=== PATIENT | male | born 1975 | race Caucasian/White ===

== ENCOUNTER 2018-06-16 03:47 | Emergency (ER) | payer OTHER ==
[~2018-06-16] VITALS: Ht 180.3 cm; Wt 113.6 kg
[2018-06-16] MEDS ORDERED: ALBUTEROL SULFATE 2.5 MG/0.5 ML NEB SOLUTION NEB ONE (04:15)
[2018-06-16] MEDS ORDERED: IPRATROPIUM BROMIDE 0.5 MG/2.5 ML NEB SOLUTION NEB ONE (04:15)
[2018-06-16] MEDS ORDERED: AZITHROMYCIN 250 MG TABLET PO ONE (04:45)
[2018-06-16 05:14] VITALS: BP 151/90
== END 2018-06-16 05:31 | disposition home or self-care (01) ==
LOC: EMS 03:49
DX: J40 Bronchitis, not specified as acute or chronic (principal); I10 Essential (primary) hypertension
CPT/HCPCS: 94640

== ENCOUNTER 2020-11-04 23:10 | Emergency (ER) | payer OTHER ==
[~2020-11-04] VITALS: Ht 180.3 cm; Wt 123.2 kg
[~2020-11-04 23:10] MED LIST: CARV6 PO; FURO20 PO; LISI-892 PO
[2020-11-05 03:16] VITALS: BP 113/66
== END 2020-11-05 02:31 | disposition home or self-care (01) ==
LOC: EMS 23:13
DX: L30.9 Dermatitis, unspecified (principal); I11.0 Hypertensive heart disease with heart failure; I50.9 Heart failure, unspecified; Z20.7 Contact with and (suspected) exposure to pediculosis, acariasis and other infestations
CPT/HCPCS: 99282; Z7502

== ENCOUNTER 2021-03-22 12:42 | Inpatient (IN) | payer OTHER ==
[~2021-03-22] VITALS: Ht 180.3 cm; Wt 132.7 kg
[2021-03-22] MEDS ORDERED: ONDANSETRON HCL 4 MG/2 ML VIAL IVP ONE (13:30)
[2021-03-22 14:40] LABS: BASOPHILS % (AUTO) 1.1 % (0.0-2.0); EOSINOPHILS % (AUTO) 1.2 % (1.0-6.0); HEMATOCRIT 45.5 % (41-53); HEMOGLOBIN 14.9 g/dL (13.5-17.5); LYMPHOCYTES % (AUTO) 13.2 % (22.0-44.0); MEAN CORPUSCULAR HEMOGLOBIN 28.8 pg (26.0-34.0); MEAN CORPUSCULAR HGB CONC 32.7 G/dL (31.0-37.0); MEAN CORPUSCULAR VOLUME 88 fL (80-100); MONOCYTES # (AUTO) 0.6 K/uL (0.1-1.0); MONOCYTES % (AUTO) 7.2 % (2.0-9.0); NEUTROPHILS # (AUTO) 6.1 K/uL (1.8-7.7); NEUTROPHILS % (AUTO) 77.3 % (40.0-70.0); PLATELET COUNT (AUTO) 228 K/uL (150-450); RED BLOOD CELL COUNT(AUTO) 5.17 MIL/uL (4.50-5.90)
[2021-03-22 14:52] LABS: ANION GAP 9 mmol/L (8-16); CALCIUM, TOTAL 8.4 mg/dL (8.8-10.5); CARBON DIOXIDE 24 mmol/L (22-29); CHLORIDE 106 mmol/L (98-107); CREATININE 1.25 mg/dL (0.60-1.30); GLOMERULAR FILTR. RATE CALC > 60 mL/min (>60); GLUCOSE,RANDOM 114 mg/dL (70-110); POTASSIUM 3.8 mmol/L (3.5-5.1); SODIUM SERUM 139 mmol/L (136-145); UREA NITROGEN, BLOOD 21 mg/dL (7-18)
[2021-03-22 14:58] LABS: ALANINE AMINOTRANSFERASE 236 U/L (12-78); ALBUMIN 2.9 g/dL (3.4-5.0); ALKALINE PHOSPHATASE 93 U/L (46-116); ASPARTATE AMINOTRANSFERASE 178 U/L (15-37); BILIRUBIN,TOTAL 1.1 mg/dL (0.1-1.0); LIPASE 240 U/L (73-393); TOTAL PROTEIN, SERUM 7.1 g/dL (6.4-8.2)
[2021-03-22 15:00] LABS: B-TYPE NATRIURETIC PEPTIDE 966 pg/mL (0-100)
[2021-03-22] MEDS ORDERED: FUROSEMIDE 40 MG/4 ML VIAL IVP ONE (15:15)
[2021-03-22] MEDS: NITROGLYCERIN 2% (1 GM=INCH) PACKET TP ONE ×2 (15:31→16:48)
[2021-03-22 15:51] LABS: COVID AG,FIA SOURCE NASOPHARYNGEAL
[2021-03-22 15:57] LABS: APPEARANCE,URINE CLEAR (CLEAR); BILIRUBIN,URINE NEGATIVE (NEGATIVE); GLUCOSE, URINE (UA) NEGATIVE (NEGATIVE); KETONES,URINE NEGATIVE (NEGATIVE); LEUKOCYTE ESTERASE ,URINE NEGATIVE (NEGATIVE); NITRATE,URINE NEGATIVE (NEGATIVE); OCCULT BLOOD,URINE SMALL (NEGATIVE); PH,URINE 5.5 (5.0-8.0); PROTEIN,URINE SEE CONFIRM (NEGATIVE); UROBILINOGEN,URINE 0.2 mg/dL (<=1.0)
[2021-03-22 16:02] LABS: AMPHET/METH SCREEN,URINE POSITIVE (NEGATIVE); BARBITURATE SCREEN, URINE NEGATIVE (NEGATIVE); BENZODIAZEPINES SCREEN,URINE NEGATIVE (NEGATIVE); CANNABINOID SCREEN,URINE NEGATIVE (NEGATIVE); COCAINE SCREEN,URINE NEGATIVE (NEGATIVE); METHADONE SCREEN, URINE NEGATIVE (NEGATIVE); OPIATE SCREEN,URINE NEGATIVE (NEGATIVE); PHENCYCLIDINE SCREEN,URINE NEGATIVE (NEGATIVE)
[2021-03-22 16:21] LABS: BACTERIA,URINE Rare /HPF (None Seen); HYALINE CASTS, URINE 0-2 /LPF (None Seen); SQUAMOUS EPITHELIAL CELL,UR Rare /LPF (None Seen); SULFOSALICYLIC ACID,URINE 3+ (Negative); WBC,URINE 0-2 /HPF (0-5)
[2021-03-22] MEDS ORDERED: MAGNESIUM HYDROXIDE SUSPENSION 30 ML UDCUP PO PRN (16:45)
[2021-03-22] MEDS ORDERED: MORPHINE SULFATE 2 MG/ML SYRINGE IVP PRN (16:45)
[2021-03-22] MEDS ORDERED: HYDROCODONE/ACETAMINOPHEN 5-325 MG TABLET PO PRN (16:45)
[2021-03-22] MEDS ORDERED: ACETAMINOPHEN 325 MG TABLET PO PRN (16:45)
[2021-03-22] MEDS ORDERED: ONDANSETRON HCL 4 MG/2 ML VIAL IVP PRN (16:45)
[2021-03-22] MEDS ORDERED: LORazepam 1 MG TABLET PO ONE (16:45)
[2021-03-22] MEDS ORDERED: BISACODYL 10 MG RECTAL RECTAL SUPPOSITORY PR PRN (16:45)
[2021-03-22 20:42] VITALS: BP 153/110
[2021-03-22] MEDS: ZOLPIDEM TARTRATE 5 MG TABLET PO PRN (20:53)
[2021-03-22] MEDS: DOCUSATE SODIUM 100 MG CAPSULE PO SCH (20:53)
[2021-03-22] MEDS: CARVEDILOL 6.25 MG TABLET PO SCH (20:53)
[2021-03-22] MEDS: FUROSEMIDE 20 MG/2 ML VIAL IVP SCH (20:54)
[2021-03-22 23:47] VITALS: BP 148/103
[2021-03-23] MEDS: HEPARIN SODIUM,PORCINE 5,000 UNITS/ML VIAL SQ SCH ×4 (00:15→23:15)
[2021-03-23 04:00] VITALS: BP 143/113
[2021-03-23] MEDS ORDERED: HydrALAZINE HCL 25 MG TABLET PO PRN (04:45)
[2021-03-23] MEDS ORDERED: HydrALAZINE HCL 20 MG/ML VIAL IVP PRN (05:00)
[2021-03-23 08:17] LABS: BASOPHILS % (AUTO) 1.2 % (0.0-2.0); EOSINOPHILS % (AUTO) 1.5 % (1.0-6.0); HEMATOCRIT 43.2 % (41-53); HEMOGLOBIN 14.2 g/dL (13.5-17.5); LYMPHOCYTES % (AUTO) 16.1 % (22.0-44.0); MEAN CORPUSCULAR HEMOGLOBIN 28.9 pg (26.0-34.0); MEAN CORPUSCULAR HGB CONC 32.9 G/dL (31.0-37.0); MEAN CORPUSCULAR VOLUME 88 fL (80-100); MONOCYTES # (AUTO) 0.5 K/uL (0.1-1.0); MONOCYTES % (AUTO) 7.9 % (2.0-9.0); NEUTROPHILS # (AUTO) 4.7 K/uL (1.8-7.7); NEUTROPHILS % (AUTO) 73.3 % (40.0-70.0); PLATELET COUNT (AUTO) 221 K/uL (150-450); RED BLOOD CELL COUNT(AUTO) 4.91 MIL/uL (4.50-5.90); RED CELL DISTRIBUTION WIDTH 16.6 % (11.5-14.5)
[2021-03-23 08:23] LABS: CALCIUM, TOTAL 8.4 mg/dL (8.8-10.5); CREATININE 1.47 mg/dL (0.60-1.30); POTASSIUM 3.6 mmol/L (3.5-5.1)
[2021-03-23 08:39] VITALS: BP 156/89
[2021-03-23] MEDS: FUROSEMIDE 20 MG/2 ML VIAL IVP SCH ×2 (08:49→21:13)
[2021-03-23] MEDS: CARVEDILOL 6.25 MG TABLET PO SCH ×2 (08:49→21:13)
[2021-03-23] MEDS: ASPIRIN 81 MG DR TABLET PO SCH (08:49)
[2021-03-23] MEDS: PANTOPRAZOLE SODIUM 40 MG DR TABLET PO SCH (08:50)
[2021-03-23] MEDS: DOCUSATE SODIUM 100 MG CAPSULE PO SCH ×2 (08:50→21:13)
[2021-03-23] MEDS ORDERED: LISINOPRIL 5 MG TABLET PO SCH (09:00)
[2021-03-23 10:51] VITALS: BP 148/88
[2021-03-23 15:53] VITALS: BP 142/86
[2021-03-23 20:00] VITALS: BP 135/70
[2021-03-23 23:29] VITALS: BP 134/65
[2021-03-24 03:39] VITALS: BP 138/72
[2021-03-24 07:45] VITALS: BP 135/83
[2021-03-24] MEDS: PANTOPRAZOLE SODIUM 40 MG DR TABLET PO SCH (08:01)
[2021-03-24] MEDS: DOCUSATE SODIUM 100 MG CAPSULE PO SCH ×2 (08:01→21:27)
[2021-03-24] MEDS: CARVEDILOL 6.25 MG TABLET PO SCH (08:01)
[2021-03-24] MEDS: ASPIRIN 81 MG DR TABLET PO SCH (08:01)
[2021-03-24] MEDS: HEPARIN SODIUM,PORCINE 5,000 UNITS/ML VIAL SQ SCH ×3 (08:02→23:31)
[2021-03-24] MEDS: FUROSEMIDE 20 MG/2 ML VIAL IVP SCH (08:02)
[2021-03-24 08:27] LABS: BASOPHILS % (AUTO) 0.9 % (0.0-2.0); EOSINOPHILS % (AUTO) 3.7 % (1.0-6.0); HEMATOCRIT 40.9 % (41-53); LYMPHOCYTES # (AUTO) 1.1 K/uL (1.0-4.8); LYMPHOCYTES % (AUTO) 16.7 % (22.0-44.0); MEAN CORPUSCULAR HGB CONC 34.3 G/dL (31.0-37.0); MEAN CORPUSCULAR VOLUME 87 fL (80-100); MONOCYTES # (AUTO) 0.6 K/uL (0.1-1.0); MONOCYTES % (AUTO) 8.8 % (2.0-9.0); NEUTROPHILS # (AUTO) 4.6 K/uL (1.8-7.7); NEUTROPHILS % (AUTO) 69.9 % (40.0-70.0); PLATELET COUNT (AUTO) 209 K/uL (150-450); RED BLOOD CELL COUNT(AUTO) 4.67 MIL/uL (4.50-5.90); RED CELL DISTRIBUTION WIDTH 16.9 % (11.5-14.5)
[2021-03-24 08:37] LABS: CALCIUM, TOTAL 8.5 mg/dL (8.8-10.5); CREATININE 1.67 mg/dL (0.60-1.30); POTASSIUM 4.4 mmol/L (3.5-5.1)
[2021-03-24 11:21] VITALS: BP 149/88
[2021-03-24] MEDS: FUROSEMIDE 40 MG/4 ML VIAL IVP SCH ×2 (12:43→21:27)
[2021-03-24 15:43] VITALS: BP 127/75
[2021-03-24 19:18] VITALS: BP 133/95
[2021-03-24] MEDS: CARVEDILOL 12.5 MG TABLET PO SCH (21:27)
[2021-03-24] MEDS: ZOLPIDEM TARTRATE 5 MG TABLET PO PRN (21:33)
[2021-03-24 23:37] VITALS: BP 130/81
[2021-03-25 03:45] VITALS: BP 108/58
[2021-03-25 07:03] LABS: EOSINOPHILS % (AUTO) 3.8 % (1.0-6.0); HEMATOCRIT 40.1 % (41-53); HEMOGLOBIN 13.7 g/dL (13.5-17.5); LYMPHOCYTES # (AUTO) 0.9 K/uL (1.0-4.8); LYMPHOCYTES % (AUTO) 15.2 % (22.0-44.0); MEAN CORPUSCULAR HEMOGLOBIN 29.5 pg (26.0-34.0); MEAN CORPUSCULAR HGB CONC 34.3 G/dL (31.0-37.0); MEAN CORPUSCULAR VOLUME 86 fL (80-100); MONOCYTES # (AUTO) 0.5 K/uL (0.1-1.0); MONOCYTES % (AUTO) 8.1 % (2.0-9.0); NEUTROPHILS # (AUTO) 4.3 K/uL (1.8-7.7); NEUTROPHILS % (AUTO) 71.9 % (40.0-70.0); PLATELET COUNT (AUTO) 206 K/uL (150-450); RED BLOOD CELL COUNT(AUTO) 4.65 MIL/uL (4.50-5.90); RED CELL DISTRIBUTION WIDTH 16.3 % (11.5-14.5)
[2021-03-25 07:30] LABS: ALBUMIN 2.8 g/dL (3.4-5.0); BILIRUBIN,TOTAL 0.9 mg/dL (0.1-1.0); CALCIUM, TOTAL 8.7 mg/dL (8.8-10.5); CREATININE 1.7 mg/dL (0.60-1.30); POTASSIUM 3.6 mmol/L (3.5-5.1); TOTAL PROTEIN, SERUM 6.8 g/dL (6.4-8.2)
[2021-03-25 08:47] VITALS: BP 136/91
[2021-03-25] MEDS: DOCUSATE SODIUM 100 MG CAPSULE PO SCH (08:57)
[2021-03-25] MEDS: PANTOPRAZOLE SODIUM 40 MG DR TABLET PO SCH (08:58)
[2021-03-25] MEDS: ASPIRIN 81 MG DR TABLET PO SCH (08:58)
[2021-03-25] MEDS: CARVEDILOL 12.5 MG TABLET PO SCH (08:58)
[2021-03-25] MEDS: FUROSEMIDE 40 MG/4 ML VIAL IVP SCH (08:58)
[2021-03-25] MEDS: HEPARIN SODIUM,PORCINE 5,000 UNITS/ML VIAL SQ SCH ×2 (08:58→15:16)
[2021-03-25] MEDS ORDERED: FUROSEMIDE 20 MG TABLET PO SCH (09:00)
[2021-03-25 16:10] VITALS: BP 127/88
[2021-03-25 19:23] VITALS: BP 137/81
[2021-03-26] MEDS: ZOLPIDEM TARTRATE 5 MG TABLET PO PRN
[2021-03-26] MEDS: DOCUSATE SODIUM 100 MG CAPSULE PO SCH ×3 (00:01→21:47)
[2021-03-26] MEDS: HEPARIN SODIUM,PORCINE 5,000 UNITS/ML VIAL SQ SCH ×3 (00:01→16:30)
[2021-03-26] MEDS: CARVEDILOL 25 MG TABLET PO SCH ×3 (00:01→21:47)
[2021-03-26] MEDS: FUROSEMIDE 40 MG/4 ML VIAL IVP SCH ×2 (00:02→08:48)
[2021-03-26 00:26] VITALS: BP 126/72
[2021-03-26 03:30] VITALS: BP 112/73
[2021-03-26 08:04] VITALS: BP 124/94
[2021-03-26 08:30] LABS: BASOPHILS % (AUTO) 1.6 % (0.0-2.0); EOSINOPHILS % (AUTO) 3.7 % (1.0-6.0); HEMATOCRIT 40.9 % (41-53); HEMOGLOBIN 13.7 g/dL (13.5-17.5); LYMPHOCYTES # (AUTO) 0.8 K/uL (1.0-4.8); LYMPHOCYTES % (AUTO) 15.5 % (22.0-44.0); MEAN CORPUSCULAR HEMOGLOBIN 29.4 pg (26.0-34.0); MEAN CORPUSCULAR HGB CONC 33.5 G/dL (31.0-37.0); MEAN CORPUSCULAR VOLUME 88 fL (80-100); MONOCYTES # (AUTO) 0.5 K/uL (0.1-1.0); MONOCYTES % (AUTO) 10.2 % (2.0-9.0); NEUTROPHILS # (AUTO) 3.7 K/uL (1.8-7.7); PLATELET COUNT (AUTO) 190 K/uL (150-450); RED BLOOD CELL COUNT(AUTO) 4.66 MIL/uL (4.50-5.90); RED CELL DISTRIBUTION WIDTH 16.3 % (11.5-14.5)
[2021-03-26] MEDS: ASPIRIN 81 MG DR TABLET PO SCH (08:40)
[2021-03-26] MEDS: PANTOPRAZOLE SODIUM 40 MG DR TABLET PO SCH (08:41)
[2021-03-26 08:50] LABS: ALBUMIN 2.9 g/dL (3.4-5.0); BILIRUBIN,TOTAL 0.7 mg/dL (0.1-1.0); CALCIUM, TOTAL 8.7 mg/dL (8.8-10.5); CREATININE 1.55 mg/dL (0.60-1.30); TOTAL PROTEIN, SERUM 6.9 g/dL (6.4-8.2)
[2021-03-26 11:08] VITALS: BP 121/70
[2021-03-26] MEDS: SPIRONOLACTONE 25 MG TABLET PO SCH (15:04)
[2021-03-26] MEDS: FUROSEMIDE 40 MG TABLET PO SCH ×2 (15:05→21:47)
[2021-03-26 15:51] VITALS: BP 122/86
[2021-03-26 19:55] VITALS: BP 118/67
[2021-03-27] VITALS (8 sets, daily range): BP systolic 10–136; BP diastolic 79–90
[2021-03-27] MEDS: HEPARIN SODIUM,PORCINE 5,000 UNITS/ML VIAL SQ SCH ×4 (00:46→23:24)
[2021-03-27 07:18] LABS: CALCIUM, TOTAL 8.8 mg/dL (8.8-10.5); CREATININE 1.47 mg/dL (0.60-1.30); POTASSIUM 3.9 mmol/L (3.5-5.1)
[2021-03-27] MEDS: SPIRONOLACTONE 25 MG TABLET PO SCH (08:31)
[2021-03-27] MEDS: PANTOPRAZOLE SODIUM 40 MG DR TABLET PO SCH (08:31)
[2021-03-27] MEDS: CARVEDILOL 25 MG TABLET PO SCH ×2 (08:32→20:47)
[2021-03-27] MEDS: ASPIRIN 81 MG DR TABLET PO SCH (08:32)
[2021-03-27] MEDS: FUROSEMIDE 40 MG TABLET PO SCH ×2 (08:32→20:47)
[2021-03-27] MEDS: DOCUSATE SODIUM 100 MG CAPSULE PO SCH ×2 (08:46→20:47)
[2021-03-27] MEDS ORDERED: FURO40 PO (13:17)
[2021-03-27] MEDS ORDERED: ASPI-1444 PO (13:17)
[2021-03-27] MEDS ORDERED: SPIR-37 PO (13:17)
[2021-03-27] MEDS ORDERED: CARV25 PO (13:17)
[2021-03-27] MEDS: ZOLPIDEM TARTRATE 5 MG TABLET PO PRN (23:23)
[2021-03-28 04:53] VITALS: BP 118/69
[2021-03-28 06:32] LABS: CALCIUM, TOTAL 9.1 mg/dL (8.8-10.5); CREATININE 1.49 mg/dL (0.60-1.30); POTASSIUM 4.2 mmol/L (3.5-5.1)
[2021-03-28 07:08] VITALS: BP 122/68
[2021-03-28] MEDS: PANTOPRAZOLE SODIUM 40 MG DR TABLET PO SCH (09:15)
[2021-03-28] MEDS: DOCUSATE SODIUM 100 MG CAPSULE PO SCH (09:16)
[2021-03-28] MEDS: SPIRONOLACTONE 25 MG TABLET PO SCH (09:16)
[2021-03-28] MEDS: HEPARIN SODIUM,PORCINE 5,000 UNITS/ML VIAL SQ SCH ×2 (09:16→16:00)
[2021-03-28] MEDS: ASPIRIN 81 MG DR TABLET PO SCH (09:16)
[2021-03-28] MEDS: CARVEDILOL 25 MG TABLET PO SCH (09:16)
[2021-03-28] MEDS: FUROSEMIDE 40 MG TABLET PO SCH (09:16)
[2021-03-28 10:56] VITALS: BP 127/77
== END 2021-03-28 15:50 | disposition home or self-care (01) | DRG 194 ==
LOC: EMS 12:42 → 5S 19:30
PROVIDERS: ADMIT Internal Medicine; ATTEND Internal Medicine
DX: I13.0 Hypertensive heart and chronic kidney disease with heart failure and stage 1 through stage 4 chronic kidney disease, or unspecified chronic kidney disease (principal); N17.9 Acute kidney failure, unspecified; I42.8 Other cardiomyopathies; I50.23 Acute on chronic systolic (congestive) heart failure; E66.01 Morbid (severe) obesity due to excess calories; N18.9 Chronic kidney disease, unspecified; Z20.822 Contact with and (suspected) exposure to COVID-19; F15.10 Other stimulant abuse, uncomplicated; Z91.14 Patient's other noncompliance with medication regimen; Z79.899 Other long term (current) drug therapy; Z68.41 Body mass index [BMI] 40.0-44.9, adult
CPT/HCPCS: 71045; 80048; 80053; 81001; 81002; 83690; 83880; 84484; 85025; 93005; 93306; 99285; G0378; J0360; J1644; J1940; J2405; 36415-L1; 36415-TC

== ENCOUNTER 2021-08-04 14:28 | Inpatient (IN) | payer OTHER ==
[~2021-08-04] VITALS: Ht 180.3 cm; Wt 135.8 kg
[~2021-08-04 14:28] MED LIST changes: +ASPI-1444 PO; +CARV25 PO; -CARV6 PO; -FURO20 PO; +FURO40 PO; -LISI-892 PO; +SPIR-37 PO
[2021-08-04 15:01] LABS: BASOPHILS % (AUTO) 1.8 % (0.0-2.0); EOSINOPHILS % (AUTO) 4.3 % (1.0-6.0); HEMATOCRIT 39.8 % (41-53); HEMOGLOBIN 12.8 g/dL (13.5-17.5); LYMPHOCYTES # (AUTO) 0.7 K/uL (1.0-4.8); LYMPHOCYTES % (AUTO) 11.7 % (22.0-44.0); MEAN CORPUSCULAR HEMOGLOBIN 27.7 pg (26.0-34.0); MEAN CORPUSCULAR HGB CONC 32.3 G/dL (31.0-37.0); MEAN CORPUSCULAR VOLUME 86 fL (80-100); MONOCYTES # (AUTO) 0.6 K/uL (0.1-1.0); MONOCYTES % (AUTO) 9.4 % (2.0-9.0); NEUTROPHILS # (AUTO) 4.3 K/uL (1.8-7.7); NEUTROPHILS % (AUTO) 72.8 % (40.0-70.0); PLATELET COUNT (AUTO) 268 K/uL (150-450); RED BLOOD CELL COUNT(AUTO) 4.63 MIL/uL (4.50-5.90); RED CELL DISTRIBUTION WIDTH 19.8 % (11.5-14.5)
[2021-08-04 15:24] LABS: INR 1.5 (0.9-1.1); PROTHROMBIN TIME 15.9 SEC (9.4-11.6)
[2021-08-04 15:54] LABS: CALCIUM, TOTAL 8.1 mg/dL (8.8-10.5); CREATININE 1.55 mg/dL (0.60-1.30); POTASSIUM 3.8 mmol/L (3.5-5.1)
[2021-08-04] MEDS ORDERED: FUROSEMIDE 40 MG/4 ML VIAL IVP ONE (16:00)
[2021-08-04 16:19] LABS: ALBUMIN 2.7 g/dL (3.4-5.0); BILIRUBIN,TOTAL 2.7 mg/dL (0.1-1.0); MAGNESIUM 2.1 mg/dL (1.80-2.40); PHOSPHORUS 3.9 mg/dL (2.5-4.9); TOTAL PROTEIN, SERUM 7.4 g/dL (6.4-8.2)
[2021-08-04 16:20] LABS: COVID AG,FIA SOURCE NASOPHARYNGEAL
[2021-08-04] MEDS ORDERED: MORPHINE SULFATE 2 MG/ML SYRINGE IVP PRN (17:00)
[2021-08-04] MEDS ORDERED: ZOLPIDEM TARTRATE 5 MG TABLET PO PRN (17:00)
[2021-08-04] MEDS ORDERED: ACETAMINOPHEN 325 MG TABLET PO PRN (17:00)
[2021-08-04] MEDS ORDERED: ONDANSETRON HCL 4 MG/2 ML VIAL IVP PRN (17:00)
[2021-08-04] MEDS ORDERED: OxyCODONE HCL/ACETAMINOPHEN 5-325 MG TABLET PO PRN (17:00)
[2021-08-04] MEDS ORDERED: LORazepam 2 MG/ML VIAL IVP PRN (17:00)
[2021-08-04 17:11] LABS: INFLUENZA TYPE A NEGATIVE FOR TYPE A (NEGATIVE); INFLUENZA TYPE B NEGATIVE FOR TYPE B (NEGATIVE)
[2021-08-04 17:49] LABS: APPEARANCE,URINE CLEAR (CLEAR); BILIRUBIN,URINE NEGATIVE (NEGATIVE); GLUCOSE, URINE (UA) NEGATIVE (NEGATIVE); KETONES,URINE NEGATIVE (NEGATIVE); LEUKOCYTE ESTERASE ,URINE NEGATIVE (NEGATIVE); NITRATE,URINE NEGATIVE (NEGATIVE); OCCULT BLOOD,URINE NEGATIVE (NEGATIVE); PROTEIN,URINE 30-70 mg/dL (NEGATIVE)
[2021-08-04 18:02] LABS: AMPHET/METH SCREEN,URINE POSITIVE (NEGATIVE); BARBITURATE SCREEN, URINE NEGATIVE (NEGATIVE); BENZODIAZEPINES SCREEN,URINE NEGATIVE (NEGATIVE); CANNABINOID SCREEN,URINE NEGATIVE (NEGATIVE); COCAINE SCREEN,URINE NEGATIVE (NEGATIVE); METHADONE SCREEN, URINE NEGATIVE (NEGATIVE); OPIATE SCREEN,URINE NEGATIVE (NEGATIVE)
[2021-08-04 18:03] LABS: PHENCYCLIDINE SCREEN,URINE NEGATIVE (NEGATIVE)
[2021-08-04 21:27] VITALS: BP_SYST 135; BP_SYST 150; BP_DIAS 94; BP_DIAS 99
[2021-08-04] MEDS: LOSARTAN POTASSIUM 25 MG TABLET PO SCH (21:51)
[2021-08-04] MEDS: CARVEDILOL 6.25 MG TABLET PO SCH (21:51)
[2021-08-04] MEDS: DOCUSATE SODIUM 100 MG CAPSULE PO SCH (21:51)
[2021-08-04] MEDS: HEPARIN SODIUM,PORCINE 5,000 UNITS/ML VIAL SQ SCH (23:16)
[2021-08-05] VITALS (7 sets, daily range): BP systolic 107–128; BP diastolic 64–93
[2021-08-05 06:12] LABS: CALCIUM, TOTAL 8.2 mg/dL (8.8-10.5); CREATININE 1.36 mg/dL (0.60-1.30); POTASSIUM 3.6 mmol/L (3.5-5.1)
[2021-08-05] MEDS: FAMOTIDINE 20 MG TABLET PO SCH (08:36)
[2021-08-05] MEDS: DOCUSATE SODIUM 100 MG CAPSULE PO SCH ×2 (08:37→19:51)
[2021-08-05] MEDS: FUROSEMIDE 40 MG/4 ML VIAL IVP SCH (08:37)
[2021-08-05] MEDS: ASPIRIN 81 MG CHEWABLE TABLET PO SCH (08:37)
[2021-08-05] MEDS: LOSARTAN POTASSIUM 25 MG TABLET PO SCH ×2 (08:37→19:51)
[2021-08-05] MEDS: CARVEDILOL 6.25 MG TABLET PO SCH ×2 (08:37→19:51)
[2021-08-05] MEDS: HEPARIN SODIUM,PORCINE 5,000 UNITS/ML VIAL SQ SCH ×3 (08:38→23:50)
[2021-08-06 04:05] VITALS: BP 115/77
[2021-08-06 06:59] LABS: CALCIUM, TOTAL 8.8 mg/dL (8.8-10.5); CREATININE 1.4 mg/dL (0.60-1.30); POTASSIUM 3.9 mmol/L (3.5-5.1)
[2021-08-06 07:33] VITALS: BP 140/86
[2021-08-06] MEDS: CARVEDILOL 6.25 MG TABLET PO SCH (08:21)
[2021-08-06] MEDS: DOCUSATE SODIUM 100 MG CAPSULE PO SCH (08:21)
[2021-08-06] MEDS: ASPIRIN 81 MG CHEWABLE TABLET PO SCH (08:21)
[2021-08-06] MEDS: LOSARTAN POTASSIUM 25 MG TABLET PO SCH (08:22)
[2021-08-06] MEDS: FAMOTIDINE 20 MG TABLET PO SCH (08:22)
[2021-08-06] MEDS: HEPARIN SODIUM,PORCINE 5,000 UNITS/ML VIAL SQ SCH (08:22)
[2021-08-06] MEDS: FUROSEMIDE 40 MG/4 ML VIAL IVP SCH (08:22)
[2021-08-06 11:42] VITALS: BP 113/66
[2021-08-06] MEDS ORDERED: CARV6 PO (14:29)
== END 2021-08-06 15:45 | disposition home or self-care (01) | DRG 194 ==
LOC: EMS 14:28 → 5S 16:52
PROVIDERS: ADMIT Internal Medicine; ATTEND Internal Medicine
DX: I13.0 Hypertensive heart and chronic kidney disease with heart failure and stage 1 through stage 4 chronic kidney disease, or unspecified chronic kidney disease (principal); E66.01 Morbid (severe) obesity due to excess calories; I50.43 Acute on chronic combined systolic (congestive) and diastolic (congestive) heart failure; F15.90 Other stimulant use, unspecified, uncomplicated; N18.2 Chronic kidney disease, stage 2 (mild); I07.1 Rheumatic tricuspid insufficiency; Z20.822 Contact with and (suspected) exposure to COVID-19; Z68.41 Body mass index [BMI] 40.0-44.9, adult; Z91.19 Patient's noncompliance with other medical treatment and regimen
CPT/HCPCS: 71045; 80048; 80053; 81003; 82550; 83735; 83880; 84100; 84484; 85025; 85610; 85730; 87804; 93005; 99285; G0480; J1644; J1940; J2270; 36415-L1; 36415-TC